=== PATIENT | male | born 1965 | race Caucasian/White ===

== ENCOUNTER 2023-11-04 21:20 | Emergency (ER) | payer BC ==
[2023-11-04 21:38] VITALS: TEMP 97.5; O2SAT 96
[2023-11-04 22:02] VITALS: BP 134/92; PULSE 73; RESP 17
--- NOTE | 2023-11-04 22:02 | ERPHSYRPT ---
- History of Present Illness Time Seen by Provider: 11/04/23 21:24 Source: patient Exam Limitations: no limitations Patient Subjective Stated Complaint: pt states that he has been monitoring his blood pressure this week and it has been running high for him. pt states blood pressure today was 147/96 and pt states he usually runs 120/80s Triage Nursing Assessment: pt ambulatory to bed by self with steady gait, alert and oriented x3, skin pwd, pt presents with complaints of htn, pt's bp is 149/89 and pt states that is high for him, pt has no pain at this time Physician History: 58 years old male with history of arthritis, gout presented in the ER for high blood pressure which he has been checking at [facility] lately and it stays in 140s systolic and sometimes diastolic in 90s. Patient denies any chest pain palpita tions or shortness of breath, headache, visual disturbance, numbness tingling or focal weakness etc. Patient does admit taking extra salt in the diet. Patient checked his blood pressure earlier and it was 147/92, got concerned and wanted to be checked out. Patient blood pressure currently is 149/89. Allergies/Adverse Reactions: shellfish derived Allergy (Severe, Verified 11/04/23 21:27) Tightness of Throat Home Medications: Albuterol Common Canister [Ventolin Common Canister] 2 puffs IH Q4-6HPRN PRN 11/04/23 [History] Allopurinol 100 mg [Zyloprim 100 mg] 200 mg PO DAILY 11/04/23 [History] Celecoxib [Celebrex] 1 tab PO DAILY 11/04/23 [History] Fluticasone/Vilanterol [Breo Ellipta 200-25 Mcg Inhalr] 1 puff IH DAILY 11/04/23 [History] Hx Tetanus, Diphtheria Vaccination/Date Given: No (unk) Hx Influenza Vaccination/Date Given: No Hx Pneumococcal Vaccination/Date Given: No Immunizations Up to Date: Yes Travel Risk - International Travel Have you traveled outside of the country in past 3 weeks: No - Emerging Infectious Disease Are you exhibiting symptoms associated with any current EIDs: No - Review of Systems Constitutional: No Symptoms Eyes: No Symptoms Ears, Nose, & Throat: No Symptoms Respiratory: No Symptoms Cardiac: No Symptoms Abdominal/Gastrointestinal: No Symptoms Genitourinary Symptoms: No Symptoms Musculoskeletal: No Symptoms Skin: No Symptoms Neurological: No Symptoms Psychological: No Symptoms Hematologic/Lymphatic: No Symptoms Immunological/Allergic: No Symptoms - Past Medical History Pertinent Past Medical History: Yes Neurological History: No Pertinent History ENT History: No Pertinent History Cardiac History: No Pertinent History Respiratory History: COPD Endocrine Medical History: No Pertinent History Musculoskeletal History: Arthritis, Fractures GI Medical History: No Pertinent History, Other History: No Pertinent History Psycho-Social History: No Pertinent History Male Reproductive Disorders: No Pertinent History Other Medical History: gout - Past Surgical History Past Surgical History: Yes Neuro Surgical History: No Pertinent History Cardiac: No Pertinent History Respiratory: No Pertinent History Gastrointestinal: Cholecystectomy, Hernia Repair Genitourinary: No Pertinent History Musculoskeletal: Orthopedic Surgery Male Surgical History: No Pertinent History - Social History Smoking Status: Former smoker Exposure to second hand smoke: Yes Drug Use: none - Social Determinants of Health Will the patient participate in the screening: Yes Do you worry about a steady place to live?: No Do you have any problems with any of the following?: No known problems In the past 12 months,have you had to go without utilities?: No Transportation Issues: No Has anyone in your support network made you feel unsafe?: No Have you or anyone in your house had to go without enough: No - Nursing Vital Signs Nursing Vital Signs: Initial Vital Signs Temperature 97.5 F 11/04/23 21:27 Pulse Rate 80 11/04/23 21:27 Respiratory Rate 18 11/04/23 21:27 Blood Pressure 153/97 11/04/23 21:27 O2 Sat by Pulse Oximetry 96 11/04/23 21:27 Pain Scale Pain Intensity 0 - Physical Exam General Appearance: no apparent distress, alert Eye Exam: PERRL/EOMI Ears, Nose, Throat Exam: normal ENT inspection, TMs normal, pharynx normal, moist mucous membranes Neck Exam: normal inspection, non-tender, supple, full range of motion Respiratory Exam: normal breath sounds, lungs clear Cardiovascular Exam: regular rate/rhythm, normal heart sounds Gastrointestinal/Abdomen Exam: soft, normal bowel sounds, No tenderness Back Exam: normal inspection, normal range of motion Extremity Exam: normal inspection, normal range of motion, pelvis stable Neurologic Exam: alert, oriented x 3, cooperative, inside sales advertising executive II-XII nml as tested, nml cerebellar function, nml station & gait, sensation nml, motor deficits, No normal mood/affect (Anxiety) Skin Exam: normal color SpO2 Interpretation: normal SpO2: 96 O2 Delivery: Room Air - Progress Progress: unchanged Progress Note: 11/04/23 22:02 58 years old is evaluated in the ER for elevated blood pressure readings in 140s. Patient does not report any readings more than 150s. Patient current blood pressure is 149/89. He does not have any chest pain palpitation/shortness of breath or any other signs symptoms of endorgan damage. I recommended EKG but patient does not want to get it done. Patient does admit to taking extra salt than normal. He is advised to take the DASH diet, regular exercise, weight loss and keeping blood pressure log and follow-up with PCP. Does not want any workup done and is being discharged with outpatient follow-up. Discussed signs symptoms of worsening needing return to ER which he seems understanding. Stable for discharge. Counseled pt/family regarding: diagnosis, need for follow-up - Departure Departure Disposition: Home Clinical Impression: Elevated blood pressure reading, Well adult on routine health check Condition: Stable Critical Care Time: No Referrals: LINH MASTERS MD [Primary Care Provider] - Follow up with PCP 1 day Instructions: High Blood Pressure ED, DASH diet Additional Instructions: Take low-salt diet, regular exercise, weight loss, monitor your blood pressure regularly, keep a log and follow-up with primary care for reevaluation. Return to ER for persistent high blood pressure, chest pain, headache, blurry vision, difficulty breathing etc.
== END 2023-11-04 22:12 | disposition home or self-care (01) ==
LOC: ED 21:20
DX: R03.0 Elevated blood-pressure reading, without diagnosis of hypertension (principal); Z79.899 Other long term (current) drug therapy
CPT/HCPCS: 99281

== ENCOUNTER 2024-06-05 20:41 | Emergency (ER) | payer BC ==
--- NOTE | 2024-06-05 20:42 | ERPHSYRPT ---
- History of Present Illness Time Seen by Provider: 06/05/24 20:42 Source: patient, family Exam Limitations: no limitations Physician History: This is an overweight 59-year-old white male patient who arrives by private vehicle and is a patient of Dr. Masters with a complaint of left ankle and foot injury. Patient was getting an early jump on spring cleaning when he stepped in the yard and twisted his left foot and ankle and folded it over when twisting. He can bear weight but it hurts to do so. Patient has a history of arthritis, gout and COPD. Method of Injury: twisted Occurred: just prior to arrival Quality: aching Severity of Pain-Max: mild (Moderate) Severity of Pain-Current: mild (To moderate) Lower Extremities Pain: foot: left, ankle: left Modifying Factors: Improves With: movement Associated Symptoms: other (Hurts to bear weight but can do so) Allergies/Adverse Reactions: shellfish derived Allergy (Severe, Verified 06/05/24 20:45) Tightness of Throat Home Medications: Albuterol Common Canister [Ventolin Common Canister] 2 puffs IH Q4-6HPRN PRN 11/04/23 [History] Allopurinol 100 mg [Zyloprim 100 mg] 200 mg PO DAILY 11/04/23 [History] Celecoxib [Celebrex] 1 tab PO BID 11/04/23 [History] Fluticasone/Vilanterol [Breo Ellipta 200-25 Mcg Inhalr] 1 puff IH DAILY 11/04/23 [History] Hx Tetanus, Diphtheria Vaccination/Date Given: No (unk) Hx Influenza Vaccination/Date Given: No Hx Pneumococcal Vaccination/Date Given: No Travel Risk - International Travel Have you traveled outside of the country in past 3 weeks: No - Emerging Infectious Disease Are you exhibiting symptoms associated with any current EIDs: No - Review of Systems Constitutional: No Symptoms Eyes: No Symptoms Ears, Nose, & Throat: No Symptoms Respiratory: No Symptoms Cardiac: No Symptoms Abdominal/Gastrointestinal: No Symptoms Genitourinary Symptoms: No Symptoms Musculoskeletal: Injury (Twisted left foot and ankle) Skin: No Symptoms Neurological: No Symptoms Psychological: No Symptoms Endocrine: No Symptoms Hematologic/Lymphatic: No Symptoms Immunological/Allergic: No Symptoms All Other Systems: Reviewed and Negative - Past Medical History Pertinent Past Medical History: Yes Neurological History: No Pertinent History ENT History: No Pertinent History Cardiac History: No Pertinent History Respiratory History: COPD Endocrine Medical History: No Pertinent History Musculoskeletal History: Arthritis, Fractures GI Medical History: No Pertinent History, Other History: No Pertinent History Psycho-Social History: No Pertinent History Male Reproductive Disorders: No Pertinent History Other Medical History: gout - Past Surgical History Past Surgical History: Yes Neuro Surgical History: No Pertinent History Cardiac: No Pertinent History Respiratory: No Pertinent History Gastrointestinal: Cholecystectomy, Hernia Repair Genitourinary: No Pertinent History Musculoskeletal: Orthopedic Surgery Male Surgical History: No Pertinent History - Social History Smoking Status: Former smoker Exposure to second hand smoke: Yes Drug Use: none - Social Determinants of Health Will the patient participate in the screening: Yes Do you worry about a steady place to live?: No In the past 12 months,have you had to go without utilities?: No Transportation Issues: No Has anyone in your support network made you feel unsafe?: No Have you or anyone in your house had to go w/o enough food: No - Nursing Vital Signs Nursing Vital Signs: Initial Vital Signs Temperature 98 F 06/05/24 20:46 Pulse Rate 87 06/05/24 20:46 Respiratory Rate 18 06/05/24 20:46 Blood Pressure 148/90 06/05/24 20:46 O2 Sat by Pulse Oximetry 97 06/05/24 20:46 Pain Scale Pain Intensity 6 - Physical Exam General Appearance: no apparent distress, alert, anxiety, obese Eyes, Ears, Nose, Throat Exam: normal ENT inspection, moist mucous membranes Neck Exam: normal inspection, non-tender, supple, full range of motion Cardiovascular/Respiratory Exam: chest non-tender, no respiratory distress Gastrointestinal/Abdominal Exam: non-tender Back Exam: normal inspection, normal range of motion, No CVA tenderness, No vertebral tenderness Hips Exam: bilateral: non-tender, normal inspection, normal range of motion, no evidence of injury Legs Exam: bilateral leg: non-tender, normal inspection, normal range of motion Knees Exam: bilateral knee: non-tender, normal inspection, normal range of motion, no evidence of injury Ankle Exam: right ankle: non-tender, normal inspection, normal range of motion, no evidence of injury, left ankle: bone tenderness (Dorsal left footankle border), soft tissue tenderness (Dorsal left footankle border), swelling (Lateral malleolus) Foot Exam: right foot: non-tender, left foot: bone tenderness (Dorsal left footankle border), soft tissue tenderness (Dorsal left foot and ankle border), bilateral foot: normal inspection, normal range of motion, no evidence of injury Neuro/Tendon Exam: normal sensation, normal motor functions, normal tendon functions, no evidence tendon injury Mental Status Exam: alert, oriented x 3, cooperative Skin Exam: normal color, warm, dry SpO2 Interpretation: normal O2 Delivery: Room Air - Course Nursing assessment & vital signs reviewed: Yes Ordered Tests: Active Orders 24 hr Category Date Time Status ANKLE (3 VIEWS) Stat Exams 06/05/24 21:04 Taken FOOT (MINIMUM 3 VIEWS) Stat Exams 06/05/24 21:04 Taken - Progress Progress: unchanged, pain not gone completely, re-examined Progress Note: 06/05/24 21:35 My medical decision making and reassignment of low complexity of this patient's medical issue today is based on review of the patient's past medical history, review the patient's medication list, review the patient drug allergy list, history present illness and physical findings on examination. The workup in this patient includes x-ray of the patient's left foot and ankle. Differential diagnosis includes but is not limited to left ankle sprain, fracture, dislocation, left foot sprain, fracture, dislocation 06/05/24 21:38 Interpreted the patient's preliminary reports of the following x-rays: Left ankle x-ray shows no acute fracture or dislocation. Left foot x-ray shows no acute fracture or dislocation Counseled pt/family regarding: diagnosis, need for follow-up, rad results Medical Desision Making - Diagnostic Testing Diagnostic test were ordered, analyzed, and reviewed by me: Yes Radiological Interpretation: Interpreted by me, Teleradiologist Report - Risk of complications Low Risk: Low risk of morbidity from additional dx testing or treatment - Departure Departure Disposition: Home Clinical Impression: Sprain of left foot, Left ankle sprain Condition: Stable Critical Care Time: No Referrals: LINH MASTERS MD [Primary Care Provider] - Follow up/PCP as directed Additional Instructions: Ice pack or ice bath 3-4 times a day for the next 3 days. Continue your Celebrex. Take your take home medication as instructed. Increase your activity as the pain and swelling subsided. When not up and ambulating make sure that your left leg is elevated above the level of your heart.
[2024-06-05 20:58] VITALS: RESP 18; TEMP 98
[2024-06-05] MEDS ORDERED: PERCOCET TABLET 5/325MG ONE (21:55)
[2024-06-05] MEDS: PERCOCET TABLET 5/325MG PO STA (21:56)
[2024-06-05 22:04] VITALS: BP 159/88; PULSE 89; O2SAT 97
--- NOTE | 2024-06-06 08:53 | XRAY ---
Indication: Pain following twisting injury. Comparison: None 3 view left ankle demonstrates osteopenia, small plantar heel spur, and mild lateral soft tissue swelling. No other bony, articular, or soft tissue abnormalities
--- NOTE | 2024-06-06 08:55 | XRAY ---
Indication: Pain following twisting injury. Comparison: None 3 nonweightbearing views left foot demonstrates osteopenia, moderate 1st MTP degenerative changes, and small plantar heel spur. No other bony, articular, or soft tissue abnormalities.
== END 2024-06-05 22:05 | disposition home or self-care (01) ==
LOC: ED 20:41
DX: S93.402A Sprain of unspecified ligament of left ankle, initial encounter (principal); S93.602A Unspecified sprain of left foot, initial encounter; X50.0XXA Overexertion from strenuous movement or load, initial encounter; Y93.H2 Activity, gardening and landscaping; Y92.007 Garden or yard of unspecified non-institutional (private) residence as the place of occurrence of the external cause; Z79.899 Other long term (current) drug therapy
CPT/HCPCS: 73610; 73630; 99283; A9270-GY